=== PATIENT | female | born 1955 | race Caucasian/White ===

== ENCOUNTER → 2021-03-31 | Day surgery (SDC) | payer MEDICARE, BC ==
[2021-03-31] MEDS: Brimonidine 0.2% Ophth Soln 5 ML Bottle EYERT SCH ×2 (11:33→12:16)
[2021-03-31] MEDS: Phenylephrine 2.5% Ophth Soln 2 ML Bot EYERT SCH ×2 (11:39→11:49)
[2021-03-31] MEDS: Tropicamide 1% Ophth Soln 15 ML Bottle EYERT SCH ×2 (11:44→11:54)
== END ==
LOC: JD.SDS 10:51
PROVIDERS: ATTEND Ophthalmology
DX: H26.491 Other secondary cataract, right eye (principal); H35.413 Lattice degeneration of retina, bilateral; H43.822 Vitreomacular adhesion, left eye; H16.223 Keratoconjunctivitis sicca, not specified as Sjogren's, bilateral; J45.909 Unspecified asthma, uncomplicated; Z98.890 Other specified postprocedural states; Z87.891 Personal history of nicotine dependence; Z79.899 Other long term (current) drug therapy; Z88.8 Allergy status to other drugs, medicaments and biological substances; Z96.1 Presence of intraocular lens